=== PATIENT | male | born 1965 | race Hispanic/Latino ===

== ENCOUNTER 2019-09-04 08:22 | Emergency (ER) | payer OTHER ==
[2019-09-04] MEDS ORDERED: Dexamethasone 10 MG/ML VIAL ONE (09:10)
[2019-09-05 14:13] LABS: SARS-CoV-2 MS2 Positive; SARS-CoV-2 N Gene Positive; SARS-CoV-2 S Gene Positive; SARS-CoV-2 orf1ab Positive
== END 2019-09-04 17:09 | disposition short-term general hospital (02) ==
LOC: ERS 08:22
DX: U07.1 COVID-19 (principal)
CPT/HCPCS: 87635; 96372; 99283; J1100; U0003

== ENCOUNTER 2023-04-15 13:50 | Observation (INO) | payer SELFPAY ==
[2023-04-15 14:20] LABS: #Basophils 0.1 thou/uL (0.0-0.2); #Eosinphils 0.2 thou/uL (0.0-0.7); #Monocytes 0.6 thou/uL (0.11-0.59); #Neutrophils 4.7 thou/uL (1.40-6.50); %Basophils 0.8 % (0.0-1.0); %Eosinophils 2.3 % (0.0-10.0); %Lymphocytes 29.2 % (21.0-51.0); %Monocytes 8.1 % (0.0-10.0); %Neutrophils 59.2 % (42.0-75.0); Hematocrit 41.3 % (42.0-52.0); Hemoglobin 14.7 g/dL (14.0-18.0); Mean Corpuscular HGB CONC 35.6 g/dL (32.0-36.0); Mean Platelet Volume 10.7 fL (7.4-10.4); Platelet Count 214 10x3/uL (130-400); RBC Distribution Width 11.9 % (11.5-14.5); Red Blood Cell (RBC) Count 4.59 mill/uL (4.70-6.10); White Blood Cell (WBC) Count 7.9 10x3/uL (4.8-10.8)
[2023-04-15 14:38] LABS: ALT (SGPT) 18 U/L (8-55); AST (SGOT) 18 U/L (5-34); Alkaline Phosphatase 64 U/L (40-110); Anion Gap 13 mmol/L (10-20); BUN (Urea Nitrogen) 11 mg/dL (8.4-25.7); Bilirubin, Total 0.3 mg/dL (0.2-1.2); Calc. Creatinine Clearance 0 mL/min (70-130); Calcium 9.3 mg/dL (7.8-10.44); Carbon Dioxide 28 mmol/L (22-29); Chloride 104 mmol/L (98-107); Estimated GFR 76; Globulin 3.1 g/dL (2.4-3.5); Glucose 99 mg/dL (70-105); Potassium 4.1 mmol/L (3.5-5.1); Protein, Total 7.1 g/dL (6.0-8.3); Sodium 141 mmol/L (136-145)
[2023-04-15 14:42] LABS: Troponin I 0.024 ng/mL (< 0.028)
[2023-04-15] MEDS ORDERED: Aspirin Chewable 81 MG TAB ONE (15:07)
[2023-04-15] MEDS ORDERED: Nitroglycerin 0.4 MG TAB (25 Tab Bottle) ONE (15:07)
[2023-04-15] MEDS ORDERED: Nitroglycerin 0.4 MG TAB (25 Tab Bottle) SL PRN (18:03)
[2023-04-15] MEDS ORDERED: Nitroglycerin 2% Ointment 1 INCH/1 GM Packet ONE (18:49)
[2023-04-15 19:48] LABS: Troponin I Less than 0.010 ng/mL (< 0.028)
[2023-04-15] MEDS: Morphine 2 MG/ML VIAL SLOW IVP PRN (20:22)
[2023-04-15] MEDS: Enoxaparin 40 MG (0.4 mL) SYRINGE SC SCH (20:23)
[2023-04-15 21:50] VITALS: BMI 292067.6
[2023-04-15 21:55] LABS: Troponin I Less than 0.010 ng/mL (< 0.028)
[2023-04-16 04:48] LABS: Cardiac Risk 3.6 (Less than 4.5)
[2023-04-16 06:34] LABS: Amphetamine Not Detected (NotDetected); Barbiturates Screen Not Detected (NotDetected); Benzodiazepine Screen Not Detected (NotDetected); Cocaine Metabolite Screen Not Detected (NotDetected); Methadone Not Detected (NotDetected); Methamphetamine Not Detected (NotDetected); Opiate Screen Detected (NotDetected); Oxycodone Screen Not Detected (NotDetected); Phencyclidine (PCP) Not Detected (NotDetected); THC/Cannabinoid Screen Detected (NotDetected); Tricyclic Screen Not Detected (NotDetected)
[2023-04-16] MEDS ORDERED: Regadenoson 0.4 MG/5 ML SYRINGE ONE (10:50)
[2023-04-16] MEDS: Aspirin Chewable 81 MG TAB PO SCH (13:09)
[2023-04-16] MEDS: Enoxaparin 40 MG (0.4 mL) SYRINGE SC SCH (13:10)
[2023-04-16 13:44] VITALS: BP 126/80; TEMP 97.9
== END 2023-04-16 16:30 | disposition home or self-care (01) ==
LOC: ERS 13:50 → INTOOBSV 18:27 → 2SE 18:27
PROVIDERS: ADMIT Student in an Organized Health Care Education/Training Program; ATTEND Internal Medicine
PROC: B246ZZZ Ultrasonography of Right and Left Heart (ICD-10-PCS; principal; 2023-04-16)
DX: R07.9 Chest pain, unspecified (principal); I08.2 Rheumatic disorders of both aortic and tricuspid valves; E78.5 Hyperlipidemia, unspecified
CPT/HCPCS: 36415; 36416; 71045; 71275; 74174; 78452; 80053; 80061; 80306; 83880; 84484; 85025; 93005; 93017; 93306; 96372; 96374; A9502; G0378; J1650; J2272; J2785